=== PATIENT | male | born 1955 | race Caucasian/White ===

== ENCOUNTER 2025-02-13 15:30 | Day surgery (SDC) | payer MEDICARE ==
[2025-02-13] MEDS ORDERED: methylPREDNISolone acetate IM ONE (15:31)
[2025-02-13] MEDS ORDERED: LIDOCAINE HCL 1% 50 MG/5 ML VL IJ ONE (15:31)
[2025-02-13] MEDS ORDERED: BUPIVACAINE 0.5% VIAL IJ ONE (15:31)
--- NOTE | 2025-02-13 19:11 | XRAY ---
Indication: Left hip injection. Intraoperative fluoroscopy provided for 14 seconds. Single digital spot image submitted for interpretation demonstrates needle tip projecting lateral to left femur neck. Small amount of contrast injected for needle tip placement. Correlate with intraoperative findings/report.
--- NOTE | 2025-02-14 10:16 | XRAY ---
14 seconds of fluoroscopy used in surgery for a left intra-articular hip injection.
== END 2025-02-13 18:24 | disposition home or self-care (01) ==
LOC: SDC-PAIN 15:30
PROVIDERS: ATTEND Psychiatry & Neurology Pain Medicine
DX: M16.12 Unilateral primary osteoarthritis, left hip (principal); E11.9 Type 2 diabetes mellitus without complications